=== PATIENT | female | born 1980 | race Caucasian/White ===

== ENCOUNTER 2020-09-17 09:06 | Emergency (ER) | payer OTHER ==
[~2020-09-17] VITALS: Ht 160 cm; Wt 66.7 kg
[2020-09-17] MEDS ORDERED: INTESTINEX680 M1 PO (15:03)
[2020-09-17] MEDS ORDERED: PEPCID AC20 MG PO (15:03)
[2020-09-17] MEDS ORDERED: LEVSIN/SL0.125 MG SL (15:03)
== END 2020-09-17 15:26 | disposition home or self-care (01) ==
LOC: ER 09:06
DX: A09 Infectious gastroenteritis and colitis, unspecified (principal); Z03.818 Encounter for observation for suspected exposure to other biological agents ruled out